=== PATIENT | female | born 1980 | race Caucasian/White ===

== ENCOUNTER 2018-07-06 09:18 | Outpatient (CLI) | payer BC, SELFPAY ==
[2018-07-07 21:43] LABS: Estradiol 67 pg/ml
[2018-07-08 09:46] LABS: FSH 7.9 mIU/ml; LH 3.9 mIU/ml
[2018-07-10 17:16] LABS: Antimullerian Hormone 0.1 ng/mL (0.9-9.5)
== END 2018-07-06 09:38 ==
PROVIDERS: PCP Naturopath; Visit Provider Obstetrics & Gynecology Gynecology
DX: Z31.9 Encounter for procreative management, unspecified (principal)
CPT/HCPCS: 82670; 83001; 83002; 83520

== ENCOUNTER 2018-08-08 13:43 | Outpatient (CLI) | payer BC, SELFPAY ==
[2018-08-08 22:37] LABS: Estradiol 43 pg/ml
[2018-08-09 10:38] LABS: FSH 8.5 mIU/ml; LH 3.4 mIU/ml
[2018-08-12 16:12] LABS: Antimullerian Hormone 0.2 ng/mL (0.9-9.5)
[2018-08-12 17:12] LABS: Methylenetetrahydrofol Reduc M Heterozygous (Negative)
== END 2018-08-08 14:03 ==
PROVIDERS: PCP Naturopath; Visit Provider Obstetrics & Gynecology Gynecology
DX: N96 Recurrent pregnancy loss (principal); Z31.9 Encounter for procreative management, unspecified
CPT/HCPCS: 36415; 81291; 82670; 83001; 83002; 83520

== ENCOUNTER 2018-08-15 00:59 | Outpatient (CLI) | payer BC, SELFPAY ==
[2018-08-15 21:05] LABS: Estradiol 527 pg/ml
[2018-08-16 10:03] LABS: FSH 15.6 mIU/ml; LH 15.7 mIU/ml
== END 2018-08-15 01:19 ==
PROVIDERS: PCP Naturopath; Visit Provider Obstetrics & Gynecology Gynecology
DX: Z31.9 Encounter for procreative management, unspecified (principal)
CPT/HCPCS: 36415; 82670; 83001; 83002

== ENCOUNTER 2018-09-11 11:15 | Outpatient (CLI) | payer BC, SELFPAY ==
[2018-09-11 12:09] LABS: HCG Quant, Pregnancy 1 mIU/mL (1-3)
== END 2018-09-11 11:35 ==
PROVIDERS: PCP Naturopath; Visit Provider Obstetrics & Gynecology Gynecology
DX: N91.2 Amenorrhea, unspecified (principal)
CPT/HCPCS: 36415; 84702

== ENCOUNTER 2018-11-04 16:12 | Outpatient (CLI) | payer BC, SELFPAY ==
[2018-11-04 18:29] LABS: HCG Quant, Pregnancy < 1 mIU/mL (1-3)
[2018-11-04 21:07] LABS: Vitamin D 25 Total 22.8 ng/ml (30-100)
[2018-11-06 15:13] LABS: FSH 3.1 mIU/ml; LH 3.6 mIU/ml
[2018-11-07 17:26] LABS: Estradiol, Mass Spectrometry 421 pg/mL; Estrone 193 pg/mL
== END 2018-11-04 16:32 ==
PROVIDERS: PCP Naturopath; Visit Provider Naturopath
DX: Z31.9 Encounter for procreative management, unspecified (principal); E55.9 Vitamin D deficiency, unspecified
CPT/HCPCS: 36415; 82306; 82670; 82679; 83001; 83002; 84144; 84702

== ENCOUNTER 2019-03-10 01:20 | Outpatient (CLI) | payer BC, SELFPAY ==
--- NOTE | 2019-03-10 12:52 | DI.US_ITS ---
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 Uterus is unremarkable in appearance. Largest follicle on the left is about 14 mm. in diameter and largest follicle on the right is about 13 mm. in diameter. There is a small quantity of free fluid in the cul-de-sac. Limited scanning of the kidneys is unremarkable.
== END 2019-03-10 01:40 ==
PROVIDERS: PCP Naturopath; Visit Provider Obstetrics & Gynecology Gynecology
DX: N97.0 Female infertility associated with anovulation (principal); N83.01 Follicular cyst of right ovary; N83.02 Follicular cyst of left ovary
CPT/HCPCS: 76830; 76856

== ENCOUNTER 2019-08-25 10:27 | Outpatient (CLI) | payer BC, SELFPAY ==
[2019-08-25 17:27] LABS: Progesterone 11.2 ng/mL (See Table)
== END 2019-08-25 10:47 ==
PROVIDERS: PCP Naturopath; Visit Provider Nurse Practitioner Women's Health
DX: N96 Recurrent pregnancy loss (principal); O26.851 Spotting complicating pregnancy, first trimester
CPT/HCPCS: 36415; 84144; 84702

== ENCOUNTER 2019-08-27 09:25 | Outpatient (CLI) | payer BC, SELFPAY | END 2019-08-27 09:45 | PROVIDERS: PCP Naturopath; Visit Provider Nurse Practitioner Women's Health | DX: O26.21 Pregnancy care for patient with recurrent pregnancy loss, first trimester (principal); O26.859 Spotting complicating pregnancy, unspecified trimester | CPT/HCPCS: 36415; 84702 ==

== ENCOUNTER 2019-08-29 09:59 | Outpatient (CLI) | payer BC, SELFPAY | END 2019-08-29 10:19 | PROVIDERS: PCP Naturopath; Visit Provider Naturopath | DX: O09.899 Supervision of other high risk pregnancies, unspecified trimester (principal); Z67.91 Unspecified blood type, Rh negative | CPT/HCPCS: 36415; 86850; 86900; 86901; 90384 ==

== ENCOUNTER 2019-09-25 11:27 | Outpatient (REF) | payer BC, SELFPAY ==
[2019-09-25 12:33] LABS: *AMPHETAMINES SCREEN URINE Negative (Negative); *BARBITURATES SCREEN URINE Negative (Negative); *BENZODIAZEPINES SCREEN URINE Negative (Negative); Cannabinoids THC Negative (Negative); Cocaine Screen,Urine Negative (Negative); METHADONE URINE SCREEN Negative (Negative); OPIATES URINE SCREEN Negative (Negative)
[2019-09-25 12:36] LABS: Tricyclic Antidepressants Negative (Negative)
[2019-09-30 10:19] LABS: Buprenorphine Negative; Norbuprenorphine Negative
== END 2019-09-25 11:47 ==
LOC: LBN 11:27
PROVIDERS: PCP Naturopath; Visit Provider Advanced Practice Midwife
DX: Z34.91 Encounter for supervision of normal pregnancy, unspecified, first trimester (principal)
CPT/HCPCS: 80307; 87086

== ENCOUNTER 2019-10-02 10:31 | Outpatient (CLI) | payer BC, SELFPAY ==
[2019-10-02 11:38] LABS: Kit/Specimen SENT
[2019-10-02 12:12] LABS: Abs Immature Grans 0.05 k/cumm (0.0-0.09); Absolute Basophil Count 0.04 k/cumm (0.0-0.2); Absolute Eosinophil Count 0.44 k/cumm (0.0-0.7); Absolute Lymphocyte Count 1.31 k/cumm (1.2-3.4); Absolute Monocyte Count 1.07 k/cumm (0.11-0.7); Absolute Neutrophil Count 6.57 k/cumm (1.2-6.7); Basophils % 0.4; Eosinophils % 4.6; HCT 38.4 % (36.0-46.0); Immature Grans % 0.5 %; Lymphocytes % 13.8; Mean Corp. HGB Concentration 33.9 g/dL (32.0-36.0); Mean Corpuscular Hemoglobin 32.6 pg (27.0-33.0); Mean Corpuscular Volume 96.2 fL (80-95); Mean Platelet Volume 9.5 fL (8.0-11.0); Monocytes % 11.3; Neutrophils % 69.4; Platelet Count 271 x1000/uL (130-400); RBC 3.99 m/cumm (4.00-5.20); White Blood Cell Count 9.48 k/cumm (4.4-10.8)
[2019-10-02 13:07] LABS: TSH (W/Ref FT4) 1.39 uIU/mL (0.36-3.74)
[2019-10-03 09:32] LABS: Hepatitis B Surface Ag Negative (Negative)
[2019-10-03 10:12] LABS: Hepatitis C Ab w Rflx HCV PCR Negative (Negative)
[2019-10-03 11:32] LABS: HIV-1/2 Ag & Ab Screen Negative (Negative)
[2019-10-03 12:34] LABS: Rubella IgG Ab (UVM) Positive (See Note); Varicella IgG Antibody Positive (See Note)
[2019-10-03 16:29] LABS: Syphilis Total Ab w/Reflex Nonreactive (Nonreactive)
[2019-10-09 10:56] LABS: Specimen WB Whole Blood
[2019-10-09 12:59] LABS: Result Summary NEGATIVE; Specimen WB Whole Blood
== END 2019-10-02 10:51 ==
PROVIDERS: PCP Naturopath; Visit Provider Advanced Practice Midwife
DX: Z34.91 Encounter for supervision of normal pregnancy, unspecified, first trimester (principal); Z36.89 Encounter for other specified antenatal screening
CPT/HCPCS: 81329; 86787; 86803; 86850; 86900; 86901; 87340; 87389; 81220; 84443; 85025; 86762; 86780; 86870

== ENCOUNTER 2019-10-07 08:49 | Outpatient (CLI) | payer BC, SELFPAY ==
[2019-10-13 09:15] LABS: COVID-19 RT-PCR Result Not Detected
== END 2019-10-07 09:09 ==
PROVIDERS: PCP Naturopath; Visit Provider Advanced Practice Midwife
DX: Z20.828 Contact with and (suspected) exposure to other viral communicable diseases (principal); Z11.59 Encounter for screening for other viral diseases; R05 Cough; R09.89 Other specified symptoms and signs involving the circulatory and respiratory systems
CPT/HCPCS: 87449; U0003

== ENCOUNTER 2019-10-21 15:28 | Outpatient (REF) | payer BC, SELFPAY ==
[2019-10-23 13:46] LABS: Chlamydia Result Negative (Negative); GC Result Negative (Negative)
== END 2019-10-21 15:48 ==
LOC: LBN 15:28
PROVIDERS: PCP Naturopath; Visit Provider Advanced Practice Midwife
DX: Z34.91 Encounter for supervision of normal pregnancy, unspecified, first trimester (principal); Z11.3 Encounter for screening for infections with a predominantly sexual mode of transmission
CPT/HCPCS: 87491; 87591

== ENCOUNTER 2019-10-23 02:23 | Outpatient (CLI) | payer BC, SELFPAY ==
[2019-10-23 09:01] LABS: Abs Immature Grans 0.08 k/cumm (0.0-0.09); Absolute Basophil Count 0.04 k/cumm (0.0-0.2); Absolute Eosinophil Count 0.35 k/cumm (0.0-0.7); Absolute Monocyte Count 0.75 k/cumm (0.11-0.7); Basophils % 0.4; Eosinophils % 3.4; HCT 36.5 % (36.0-46.0); HGB 12.5 g/dL (12.0-15.5); Immature Grans % 0.8 %; Lymphocytes % 15.5; Mean Corp. HGB Concentration 34.2 g/dL (32.0-36.0); Mean Corpuscular Volume 96.3 fL (80-95); Mean Platelet Volume 8.9 fL (8.0-11.0); Monocytes % 7.3; Neutrophils % 72.6; Platelet Count 285 x1000/uL (130-400); RBC 3.79 m/cumm (4.00-5.20); RBC Distribution Width 12.9 % (11.7-14.6); White Blood Cell Count 10.32 k/cumm (4.4-10.8)
[2019-10-23 10:21] LABS: Iron 149 ug/dL (50-170); Total Iron Binding Capacity 413 ug/dL (250-450)
[2019-10-23 10:32] LABS: Ferritin 67 ng/mL (8-252)
[2019-10-23 10:46] LABS: Vitamin B12 921 pg/mL (193-986)
[2019-10-23 10:49] LABS: Folate > 20.0 ng/mL (8.6-20.0)
[2019-10-23 16:54] LABS: Progesterone 59.4 ng/mL (See Table)
== END 2019-10-23 02:43 ==
PROVIDERS: PCP Naturopath; Visit Provider Advanced Practice Midwife
DX: Z34.92 Encounter for supervision of normal pregnancy, unspecified, second trimester (principal)
CPT/HCPCS: 36415; 82607; 82728; 82746; 83540; 83550; 84144; 85025

== ENCOUNTER 2020-01-08 04:35 | Outpatient (CLI) | payer BC, SELFPAY ==
[2020-01-08 17:13] LABS: Abs Immature Grans 0.16 k/cumm (0.0-0.09); Absolute Basophil Count 0.02 k/cumm (0.0-0.2); Absolute Eosinophil Count 0.33 k/cumm (0.0-0.7); Absolute Lymphocyte Count 2.01 k/cumm (1.2-3.4); Absolute Monocyte Count 0.87 k/cumm (0.11-0.7); Basophils % 0.2; Eosinophils % 3.1; HCT 32.8 % (36.0-46.0); HGB 11.3 g/dL (12.0-15.5); Immature Grans % 1.5 %; Lymphocytes % 18.6; Mean Corp. HGB Concentration 34.5 g/dL (32.0-36.0); Mean Corpuscular Volume 98.8 fL (80-95); Mean Platelet Volume 9.1 fL (8.0-11.0); Monocytes % 8.1; Neutrophils % 68.5; Platelet Count 210 x1000/uL (130-400); RBC 3.32 m/cumm (4.00-5.20); RBC Distribution Width 12.1 % (11.7-14.6); White Blood Cell Count 10.79 k/cumm (4.4-10.8)
[2020-01-08 17:33] LABS: Bilirubin Negative (Negative); Blood Negative (Negative); Clarity Clear (Clear); Glucose Negative (Negative); Ketones Negative (Negative); Leukocyte Esterase Negative (Negative); Nitrite Negative (Negative); Specific Gravity 1.025 (1.005-1.025); Urobilinogen 0.2 EU/dL (Up TO 0.2)
[2020-01-08 18:03] LABS: Iron 148 ug/dL (50-170); Total Iron Binding Capacity 482 ug/dL (250-450); Transferrin Sat 31 % (15-50)
[2020-01-08 18:32] LABS: ALT 32 U/L (14-59); AST 24 U/L (15-37); Alkaline Phosphatase 73 U/L (46-116); Anion Gap 10.8 mmol/L (3-11); BUN 12 mg/dL (7-18); Bilirubin, Total 0.2 mg/dL (0.2-1.0); CO2 22.2 mmol/L (21.0-32.0); CREATININE 0.49 mg/dL (0.55-1.02); Calcium 8.4 mg/dL (8.5-10.1); Chloride 103 mmol/L (98-107); Ferritin 33 ng/mL (8-252); Glucose 78 mg/dL (74-106); Magnesium 1.8 mg/dL (1.8-2.4); Potassium 4.2 mmol/L (3.5-5.1); Sodium 136 mmol/L (136-145); TSH 2.17 uIU/mL (0.36-3.74); Total Protein 6.2 g/dL (6.4-8.2); Vitamin B12 712 pg/mL (193-986)
[2020-01-08 18:33] LABS: Folate > 20.0 ng/mL (8.6-20.0)
[2020-01-08 18:49] LABS: FREE T4 0.91 ng/dL (0.76-1.46)
[2020-01-09 16:59] LABS: T3,Free 2.9 pg/mL (2.8-5.3)
[2020-01-09 17:13] LABS: T3, Total 183 ng/dL (97-169)
== END 2020-01-08 04:55 ==
PROVIDERS: PCP Naturopath; Visit Provider Naturopath
DX: R00.2 Palpitations (principal); G47.62 Sleep related leg cramps; Z3A.25 25 weeks gestation of pregnancy; R53.83 Other fatigue
CPT/HCPCS: 36415; 80053; 81003; 82607; 82728; 82746; 83540; 83550; 83735; 84439; 84443; 84480; 84481; 85025

== ENCOUNTER 2020-01-27 03:12 | Outpatient (CLI) | payer BC, SELFPAY ==
[2020-01-27 15:32] LABS: HCT 33.7 % (36.0-46.0); HGB 11.4 g/dL (12.0-15.5); Mean Corp. HGB Concentration 33.8 g/dL (32.0-36.0); Mean Corpuscular Hemoglobin 33.3 pg (27.0-33.0); Mean Corpuscular Volume 98.5 fL (80-95); Mean Platelet Volume 8.5 fL (8.0-11.0); Platelet Count 220 x1000/uL (130-400); RBC 3.42 m/cumm (4.00-5.20); RBC Distribution Width 12.2 % (11.7-14.6)
[2020-01-27 15:38] LABS: Glucose,1 Hr (Glucola) 92 mg/dL (80-140)
== END 2020-01-27 03:32 ==
PROVIDERS: PCP Naturopath; Visit Provider Advanced Practice Midwife
DX: Z34.93 Encounter for supervision of normal pregnancy, unspecified, third trimester (principal)
CPT/HCPCS: 36415; 82950; 85027; 86850; 90384

== ENCOUNTER 2020-01-30 02:02 | Outpatient (CLI) | payer BC, SELFPAY ==
--- NOTE | 2020-01-30 07:00 | DI.US_ITS ---
EXAM: US OB KEIRA WEIGHT CLINICAL HISTORY: s<d, , Z34.83. TECHNIQUE: Transabdominal obstetrical ultrasound performed. COMPARISON: No exams were available for comparison FINDINGS:: Number of fetuses: One. position: Vertex. Placental location: Fundal. Grade 1 BIOMETRIC DATA: BPD: 75mm = 30+ 1 weeks HC: 275 mm = 30 weeks AC: 253mm = 29+ 4 weeks FL: 55 mm = 29 weeks EFW: 1389 gms =69 % Composite Age: 29+ 5 weeks EDC: 11 April 2020 Heart Rate: 141 BPM Amniotic fluid index: 9.9 cm. Amount of fluid is within normal limits. IMPRESSION: size and weight are within the expected range. DATA REPOSITORY:
== END 2020-01-30 02:22 ==
PROVIDERS: PCP Naturopath; Visit Provider Advanced Practice Midwife
DX: O26.843 Uterine size-date discrepancy, third trimester (principal); Z3A.29 29 weeks gestation of pregnancy
CPT/HCPCS: 76816

== ENCOUNTER 2020-03-16 01:03 | Outpatient (CLI) | payer BC, SELFPAY ==
--- NOTE | 2020-03-16 06:00 | DI.US_ITS ---
EXAM: US OB KEIRA WEIGHT CLINICAL HISTORY: ,advanced maternal age,o09.529 TECHNIQUE: Ultrasound performed using standard protocol. COMPARISON: US US OB KEIRA WEIGHT from 01/30/2020 FINDINGS: Ob ultrasound was performed utilizing 3rd trimester protocol. biometry is consistent with gest ational age 34 weeks 3 days and EDC of 04/24/2020. The estimated weight is 2444 grams which is at the 29th percentile for predicted gestational ag e. Placenta is anterior with no placenta previa. There is visually a normal quantity of the amniotic fluid and the KEIRA is 12. Fetus is in cephalic presentation. heart rate is 153 BPM. IMPRESSION: DATA REPOSITORY:
== END 2020-03-16 01:23 ==
PROVIDERS: PCP Naturopath; Visit Provider Advanced Practice Midwife
DX: O09.523 Supervision of elderly multigravida, third trimester (principal)
CPT/HCPCS: 76816

== ENCOUNTER 2020-03-16 03:18 | Outpatient (CLI) | payer BC, SELFPAY ==
[2020-03-16 07:55] LABS: HGB 11.8 g/dL (11.2-15.7); MCH 34.4 pg (27.0-33.0); MCHC 34.7 % (32.0-36.0); MCV 99.1 fL (80-95); MPV 9.3 fL (8.0-11.0); Platelet Count 155 10^3/uL (130-400); RBC 3.43 10^6/uL (3.93-5.22); RDW 12.5 % (11.7-14.6); RDW-SD 45.1 fL; WBC 9.86 10^3/uL (4.4-10.8)
[2020-03-16 12:18] LABS: Ferritin 34 ng/mL (8-252); TSH 2.26 uIU/mL (0.36-3.74)
== END 2020-03-16 03:38 ==
PROVIDERS: PCP Naturopath; Visit Provider Naturopath
DX: E55.9 Vitamin D deficiency, unspecified (principal); E53.8 Deficiency of other specified B group vitamins; R53.83 Other fatigue
CPT/HCPCS: 36415; 82306; 85027; 82728; 84443

== ENCOUNTER 2020-03-22 07:11 | Outpatient (CLI) | payer BC, SELFPAY | END 2020-03-22 07:31 | PROVIDERS: PCP Naturopath; Visit Provider Advanced Practice Midwife | DX: O09.523 Supervision of elderly multigravida, third trimester (principal) | CPT/HCPCS: 59025 ==

== ENCOUNTER 2020-03-22 16:20 | Outpatient (REF) | payer BC, SELFPAY ==
[2020-03-22 17:34] LABS: *AMPHETAMINES SCREEN URINE Negative (Negative); *BARBITURATES SCREEN URINE Negative (Negative); *BENZODIAZEPINES SCREEN URINE Negative (Negative); Cannabinoids THC Negative (Negative); Cocaine Screen,Urine Negative (Negative); METHADONE URINE SCREEN Negative (Negative); OPIATES URINE SCREEN Negative (Negative)
[2020-03-22 18:11] LABS: Tricyclic Antidepressants Negative (Negative)
[2020-03-31 11:08] LABS: Buprenorphine Negative
== END 2020-03-22 16:40 ==
LOC: LBN 16:20
PROVIDERS: PCP Naturopath; Visit Provider Advanced Practice Midwife
DX: Z34.83 Encounter for supervision of other normal pregnancy, third trimester (principal)
CPT/HCPCS: 80307; 87081

== ENCOUNTER 2020-03-31 07:33 | Outpatient (CLI) | payer BC, SELFPAY | END 2020-03-31 07:53 | PROVIDERS: PCP Naturopath; Visit Provider Advanced Practice Midwife | DX: O09.523 Supervision of elderly multigravida, third trimester (principal) | CPT/HCPCS: 59025 ==

== ENCOUNTER 2020-04-06 14:37 | Outpatient (CLI) | payer BC, SELFPAY ==
[2020-04-06 15:17] VITALS: BP 118/59; PULSE 83; TEMP 36.5
--- NOTE | 2020-04-06 16:06 | W.OBNST ---
Date of service: 04/06/20 Time of Service: 16:06 NST Evaluation Reason for NST Reasons for Nonstress Test: ADVANCED MATERNAL AGE Gestational Age Gestational Age in Weeks and Days: 38 Weeks and 1Days Test and Monitor Explained Test/Monitor Explained: Test Explained, Monitor Explained and Patient Verbalized Understanding Vital Signs Blood Pressure: 118/59 Pulse: 83 Temperature: 97.7 F NST Information Date on Monitor: 04/06/20 Time on Monitor: 15:12 Date off Monitor: 04/06/20 Time off Monitor: 15:40 Total Time on Monitor: 28 NST Interventions: PO Hydration Contraction Frequency: 5-7 NST Evaluation Patient States Movement: Present FHR Baseline: 140 Variability: Moderate 6-25 bpm Accelerations: 15x15 Decelerations: Early NST Results: Reactive Note NST Note Note: complains of discharge with odor. Vaginal pathogen screen taken, await results. RTO 04/12 for NST. declines induction of labor NST Reviewed and Verified by: chantel
[2020-04-06 16:08] VITALS: BP 118/59; PULSE 83; TEMP 36.5
== END 2020-04-06 16:13 | disposition home or self-care (01) ==
LOC: BCD 14:38 → OBS 14:44
PROVIDERS: PCP Naturopath; Visit Provider Advanced Practice Midwife
DX: O09.523 Supervision of elderly multigravida, third trimester (principal); Z3A.38 38 weeks gestation of pregnancy; O34.63 Maternal care for abnormality of vagina, third trimester
CPT/HCPCS: 59025; 87480; 87510; 87660

== ENCOUNTER 2020-04-12 02:32 | Inpatient (IN) | payer BC, SELFPAY ==
[2020-04-12] VITALS (24 sets, daily range): BP systolic 100–117; BP diastolic 53–69; PULSE 67–101; RESP 18–20; TEMP 36.4–37; O2SAT 98–100
[2020-04-12] MEDS: Lactated Ringers 500 ML IV (03:25)
[2020-04-12 03:39] LABS: HCT 35.4 % (36.0-46.0); MCH 33.4 pg (27.0-33.0); MCHC 33.9 % (32.0-36.0); MCV 98.6 fL (80-95); MPV 10.1 fL (8.0-11.0); Platelet Count 154 10^3/uL (130-400); RBC 3.59 10^6/uL (3.93-5.22); RDW-SD 43.5 fL; WBC 10.43 10^3/uL (4.4-10.8)
[2020-04-12] MEDS: Bupivacaine 0.25% Pres-Free 30 ML VIAL (03:50)
--- NOTE | 2020-04-12 04:20 | W.PM.OBHPL1 ---
Date of service: 04/12/20 Time of Service: 04:21 Assessment and Plan Assessment and plan (1) Uterine contractions: Status: Acute Assessment and plan: Admit to Center. Comfort measures. Covid- 19 test. Anticipate . Farnaz used nitrous oxide for pelvic exam and to assist her with contraction pain with good effect. The tub was unavailable. Farnaz requested an epidural. OB-HPI Labor/Delivery History of Present Illness Reason for Visit: LABOR Chief Complaint: Uterine Contractions. YOANNA Calculator Estimated Delivery Date Method Current WG Current Estimate 04/19/20 LMP (Uncertain) 39w 0d Other Estimates 04/15/20 Ultrasound #1 39w 4d 04/20/20 Ultrasound #2 38w 6d Comments: strong regular contractions at home History of Present Expected Delivery Route/Plan - CNM FOB/ - Ty Beulah Doesn't want to know gender Age 40 at delivery: per [facility] MFM - NST's w/KEIRA @ 38 wks, IOL 39-40 wks Farnaz does not wish to be induced unless there is another medical reason GBS NEG N2O to be offered @ initial admission exam and all exams thereafter. [place] slip attached to BC chart re same al Specific Issues/Plan 1. Rh neg: light bleeding at 6w. Pt received dose of Rhogam at 7w. 1a. RhoGam @ 28 wks on 01/27/20 2. AMA: pt desires level 2 sono @ [facility] w/[facility] consult on 11/21/19 2a. [facility]:, level 2 sono & Chauncey nml, no further rec from [facility] regarding AP care 2b. refer to [facility] rec's for maternal age 40 (not discussed w/pt @ consult) 2c. Early induction of labor discussed - Farnaz declines 3. Desires Chauncey, CF and SMA, PA req sent. Also desires single marker AFP @ 15 wks. 3a. SMA and CF carrier screen negative 3b. Chauncey results low prob x3 4. Hx vulvar vestibulitis, no Rx or Tx currently, painful intercourse upon entry 4a. Hopes not to have an epidural this time, would like to try for waterbirth, ?pudendal?, & nitrous 5. Using vaginal prometrium BID to maintain until 12 wks 6. Hx anxiety, in therapy, no meds, declines [facility] referral 6a. severe depression, seeing her therapist 01/06. Declines medication 6b. under the care of a asphalt mixing machine operator, labs were done 01/13, taking Magnesium supplement 7. Has been under the care of a asphalt mixing machine operator for her digestive concerns 8. Rx'ed Flonase BID for allergies (cat B) 9. Persistent vaginal yeast sx, Rx'ed diflucan 150 PO x1 and Terazol 7, sent 12/07 9a. 12/18 - symptoms improved. 10. Back pain - referred to [facility] 11. Requests jelly beans in place of Glucola. She drank 50 grams of soda/shake. Normal results. 12. 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 13. US for growth at 28 weeks - EFW 69%ile and KEIRA 9.9; pt has increased anxiety about size, will repeat at 36 wks = 29%, keira 12 14. History of pelvic floor dysfunction and dyspareunia - plans to have pelvic floor therapy at her chiropractor after delivery. Assessment: History Reviewed & Current Informed Consent Informed Consent: Regional Anesthesia [facility] Medical History (Updated 04/12/20 @ 04:24 by Ivania Healy CNM) Dyspareunia Lichen simplex chronicus Diagnosed 1999 Miscarriage 03/16/17. After diagnosed with subchorionic bleed and low FH are on dating ultrasound. 9-week SAB without D&C. RhoGam given 07/18/2017. 5W EGA. No D&C. No RhoGam given. Patient desires 2 first trimester SABs in 2016. Has used progesterone for luteal support. Rh negative, maternal received Rhogam with 1st and 02/2017 SAB. Spontaneous in first trimester (03/21/17) 02/2017. 6w dating u/s: low FHR. Subchorionic bleed. 9w SAB w/o D&C. 07/18/17 5w EGA. No D&C. Social History Smoking/Tobacco Use Status: Former Tobacco Use Quit Date: 04/15/05 Second Hand Exposure: No Alcohol Intake: former Substance use type: does not use Household members: spouse and children Number of Children: 1 current occupation: [employer] Sexually active: Yes Seatbelt use: always Female Reproductive History Menstrual control method: none History History 4 Para 1 Hx # Term Pregnancies 1 Multiple births 0 Hx # Pregnancies 0 Ectopic pregnancies 0 AB induced 0 Hx Number of Living Children 1 AB spontaneous 2 Past Pregnancies Del. Date GA/Weeks # Outcome Route Wgt Sex Labor Lgth Anesthesia Location Prov Complic 06/28/13 39 No Successful vaginal 6 lb 4 oz Male SROM then labor, epidural @ 9 cm CNM in [place] 03/20/17 9 No Unsuccessful vaginal 07/18/17 5 No Unsuccessful Delivery Date: 06/28/13 normal Natty Alvarado Delivery Date: 03/20/17 Initial dating ultrasound at 6 weeks showed IUP with slow heart rate and subchorionic bleed. SAB at 9 weeks not requiring D&C. Patient received RhoGam Georgiana Ferrer Delivery Date: 07/18/17 SAB at 5 weeks after+ UPT confirmed on 07/11/2017. No RhoGam given Georgiana Ferrer Meds Home Medications and Allergies Home Medications Medication Instructions Recorded Confirmed Type PNV cmb#95-ferrous fumarate-FA 1 ea PO 03/21/17 02/12/20 History [Prenavite] omega-3 fatty acids-fish oil 1 ea PO 03/21/17 02/12/20 History lactobacillus combination no.8 3 See Rx Instructions PO DAILY 12/19/19 02/12/20 History billion cell capsule cholecalciferol (vitamin D3) 1,000 unit PO DAILY ml 01/16/20 02/12/20 History magnesium 200 mg tablet 200 mg PO BID tab 01/16/20 02/12/20 History nettle leaf (urtica dioica) 435 mg mg PO 01/16/20 02/12/20 History capsule vitamin B12 0.5 mg-folic acid 1 mg 1 tab PO .two times daily tab 01/16/20 02/12/20 History tablet Chlorophyll Liquid PO BID 01/27/20 02/12/20 History fluticasone propionate 50 1 spray CHARLEEN Q12H PRN ml 01/27/20 02/12/20 History mcg/actuation nasal spray,suspension Rhodiola/Lemon [place] Tincture PO DAILY 02/12/20 02/12/20 History Allergies Allergy/AdvReac Type Severity Reaction Status Date / Time grass pollen Allergy Intermediate Verified 04/12/20 02:55 house dust Allergy Mild Unverified 04/12/20 02:55 trees] Allergy Intermediate Uncoded 04/12/20 02:55 Exam Physical Exam Vital signs: Pulse BP Pulse Ox 77 108/53 L 100 04/12/20 04:19 04/12/20 04:19 04/12/20 04:17 Vital Signs Reviewed: Yes Constitutional Constitutional: mild distress Detailed Labor and Delivery Exam Dilation: 6 Effacement (%): 100 Consistency: soft Lanier Score: Cervical Points Exam 0 1 2 3 Dilation Closed 1-2cm 3-4 cm 5-6cm Effacement 0-30% 40-50% 60-70% 80% Consistency Firm Medium Soft Station -3 -2 -1,0 +1,+2 Position Posterior Mid Anterior Amniotic Membrane Status: Intact Monitor Mode: External Contraction Intensity: Mild/Moderate Fetus A Heart Rate Baseline: 148 Monitor Accelerations: 15 X 15 Monitor Decelerations: None Variability: Moderate (6-25 BPM) Presentation: Cephalic Categories: Category I Est. Weight: 7 lb HEENT Exam HEENT Exam: Normal Respiratory Exam Respiratory Exam: Normal Cardiovascular Exam Cardiovascular Exam: Normal Abdominal Exam Abdominal Exam: Normal Exam Exam: Normal Extremities Exam Extremities Exam: Normal Skin Exam Skin Exam: Normal Psychiatric Exam Psychiatric Exam: Normal Results Abnormal Lab Findings: Abnormal Labs 04/12/20 03:20 RBC 3.59 L Hct 35.4 L MCV 98.6 H MCH 33.4 H Risk Assessment Risk for Shoulder Dystocia Historical/Initial OB: NEGATIVE FOR: Pelvic Abnormality, Pre- BMI>30, Previous Shoulder Dystocia or Previous Macrosomia Increased Risk?: No Date/Initial: 03/22/20 36 weeks low risk Delivery Plan @ 36wks: Risk for Pre-Eclampsia Daily Dose ASA Indicated: No Yes, if one or more: NEGATIVE FOR: Hx Pre-E/Gest HTN, Chronic HTN, Multiple Gestation, Pre-gestational DM, Renal Disease, Systemic Lupus or APA Syndrome Yes, if 2 or more: POSITIVE FOR: Age>= 35 yrs; NEGATIVE FOR: Nulliparity, >10yr btwn pregnancies, BMI>30, ethinicty, Mother/Sister w/ Pre-E or Previous IUGR Risk for Post- Hemorrhage Initial: NEGATIVE FOR: Multiple Gestation, Previous PPH, Known Clotting Deficiency, Grand Multiparity or Anticoagulation At Risk?: No (low risk @ 36 weeks al) Risks Reviewed Risks Reviewed Upon Admission: Yes
[2020-04-12] MEDS: FentaNYL/ROPIvacaine 2 mcg/ml and 0.1% 200 ML CADD Cassette EP (04:38)
[2020-04-12] MEDS: Lidocaine 2% Jelly 11 ML SYR (05:50)
[2020-04-12] MEDS: Oxytocin/Normal Saline 30 UNIT/500 ML BAG 95 UNITS IV (05:55)
[2020-04-12] MEDS: Lidocaine 1% Multi-Dose 20 ML VIAL IJ (06:29)
[2020-04-12] MEDS: Ibuprofen 600 MG TAB PO ×2 (07:45→17:09)
[2020-04-12] MEDS: Acetaminophen 325 MG TAB 650 MG PO ×2 (07:46→17:09)
[2020-04-12] MEDS: Hamamelis Leaf/Glycerin 100 EACH BOX PR (07:47)
[2020-04-12 14:59] LABS: COVID-19 RT-PCR UVMMC Result Negative (Negative)
[2020-04-13] MEDS: Acetaminophen 325 MG TAB 650 MG PO ×3 (01:17→18:18)
[2020-04-13] MEDS: Ibuprofen 600 MG TAB PO ×3 (01:17→18:18)
[2020-04-13 01:29] VITALS: BP 104/62; PULSE 61; RESP 18; TEMP 37.1
[2020-04-13 07:28] LABS: HCT 32.4 % (36.0-46.0); HGB 10.9 g/dL (11.2-15.7); MCH 33.5 pg (27.0-33.0); MCHC 33.6 % (32.0-36.0); MCV 99.7 fL (80-95); MPV 9.9 fL (8.0-11.0); Platelet Count 145 10^3/uL (130-400); RBC 3.25 10^6/uL (3.93-5.22); RDW 12.2 % (11.7-14.6); RDW-SD 44.7 fL
[2020-04-13 08:00] VITALS: BP 102/65; PULSE 60; RESP 16; TEMP 36.6; O2SAT 97
--- NOTE | 2020-04-13 08:07 | W.OBDELIVERY ---
Date of service: 04/12/20 Time of Service: 10:00 OB Labor/ Delivery Information Providers Nurse Cultural Centre Manager: Ivania Healy Smoke Eater: Al Robledo Nurse: Mirza Thomas Nurse: Kaylie Mesa Labor/Delivery Information Number of Babies in Womb: 1 Steroids Given: None Reason Steroids Not Administered: N/A Group Beta Strep: Negative Antibiotics Administered: No Rubella Status: Immune Blood Type: O- Varicella Immunity: Immune Shoulder Dystocia: No Stages of Labor Onset of Labor Date: 04/11/20 Onset of Labor Time: 23:00 Complete Dilatation Date: 04/12/20 Complete Dilatation Time: 05:00 ROM Baby A: 04/12/20 ROM Baby A: 04:24 ROM Total Time- Baby A: [id number] Delivery Date-Baby A: 04/12/20 Infant Delivery Time-Baby A: 05:46 Placenta Delivery Date-Baby A: 04/12/20 Placenta Delivery Time-Baby A: 05:54 Total Length of Labor-Baby A: 6 hours and 54 minutes Placenta Cultured: No Placenta Status: Delivered Baby A Gender: Male Gestational Status: Term Gestational Age in Weeks/Days: 39 Weeks and 0 Days weight: 6 lb 15.818 oz Length-Baby A: 20.5 in Head Circumference-Baby A: 12.75 in Score-1 Minute Interval(Baby A) Heart Rate-1 minute: 100 BPM or Greater Respiratory Effort- 1 minute: Spontaneous/Strong Cry Muscle Tone-1 minute: Active Movement Reflex Response-1 minute: Prompt Response Color-1 minute: Bluish Hands or Feet Total Score-1 minute: 9 Score-5 Minute Interval(Baby A) Heart Rate- 5 minute: 100 BPM or Greater Respiratory Effort-5 minute: Spontaneous/Strong Cry Muscle Tone-5 minute: Active Movement Reflex Response-5 minute: Prompt Response Color-5 minute: Bluish Hands or Feet Total Score- 5 minute: 9 Baby A Delivery Delivery Method: Spontaneaous Presentation: Cephalic Cephalic Position: Vertex Vertex Position: Left Occipital Anterior Cord Description-Baby A: 3 Vessels Membrane Rupture: Spontaneous Amniotic Fluid: Clear Amniotic Fluid Amount: Small Amniotic Fluid Odor: None Estimated Blood Loss: 250 Delivery Outcome: Liveborn Infant Disposition: Remains with Mother Interventions Pain Management/ Repair of Laceration Type: Perineal , Laceration Extension: Second Degree . Sponge Count Correct: Vaginal Sweep Peformed , Sharp Count Correct: Yes . Shoulder Dystocia Delivery Times Infant Delivery Date-Baby A: 04/12/20 Infant Delivery Time-Baby A: 05:46
[2020-04-13] MEDS: Docusate Sodium 100 MG CAP PO ×2 (10:57→18:18)
[2020-04-13 13:05] VITALS: BP 105/50; PULSE 63; RESP 16; TEMP 36.7; O2SAT 97
--- NOTE | 2020-04-13 15:29 | W.PM.OBPNV1 ---
Date of service: 04/13/20 Time of Service: 10:30 Assessment and Plan Assessment and plan (1) Routine follow-up: Status: Acute Assessment and plan: PPD#1 PE nml, pt feeling well though tired off to a good start RhoGam given yesterday Hgb 10.9, no sx anemia Satisfied with experience P: Discharge tonight or tomorrow LC consult & nbn circumcision Planning vasectomy for BCM F/up @ 2 & 6 wks Subjective Subjective Patient comments: No complaints, Pain well controlled, Tolerating diet and Flatus present baby status: Doing well, Nursing well, Rooming in and Strong Bonding Observed feeding status: Exclusively breast feeding Narrative: Feeling tired but happy Exam Physical Exam Vital signs: Temp Pulse Resp BP Pulse Ox 98.1 F 63 16 105/50 L 97 04/13/20 13:05 04/13/20 13:05 04/13/20 13:05 04/13/20 13:05 04/13/20 13:05 Vital Signs Reviewed: Yes Constitutional Constitutional: no acute distress and average body habitus Respiratory Exam Respiratory Exam: Normal Cardiovascular Exam Cardiovascular Exam: Normal Abdominal Exam Comments: soft Fundal Exam Fundus: Below Umbilicus and Firm Extremities Exam Extremity Exam: Normal Psychiatric Exam Psychiatric Exam: Normal Results Hemoglobin/Hematocrit: Hgb 10.9 g/dL (11.2-15.7) L 04/13/20 07:10 Hct 32.4 % (36.0-46.0) L 04/13/20 07:10 Abnormal Lab Findings: Abnormal Labs 04/12/20 04/13/20 03:20 07:10 RBC 3.59 L 3.25 L Hgb 10.9 L Hct 35.4 L 32.4 L MCV 98.6 H 99.7 H MCH 33.4 H 33.5 H
--- NOTE | 2020-04-13 17:45 | W.PM.OBDISCH ---
Date of service: 04/13/20 Time of Service: 17:45 DS: Diagnosis Discharge Diagnosis (1) Routine follow-up: Status: Acute (2) Term delivered: Status: Acute Discharge Plan Disposition Patient Disposition: HOME Condition: Good Discharge Details Reason For Visit: LABOR Admit Date/Time: 04/12/20 02:32 Admit Provider: Ivania Healy Attending Provider: Ivania Healy Primary Care Provider: Ivania Sow Hospital Course Hospital Course: with epidural anesthesia, nml PP course Home Meds and New Rx's Prescriptions: No Action cholecalciferol (vitamin D3) 25 mcg/drop ( 1,000 unit/drop) drops 5,000 unit PO DAILY RF: 0 magnesium 200 mg tablet 200 mg PO BID RF: 0 vitamin O14-tqgmq acid 0.5-1 mg tablet 3 tab PO .two times daily MDD 3 RF: 0 nettle leaf (urtica dioica) 435 mg capsule See Rx Instructions .ROUTE .COMPLEX RF: 0 Adult Probiotic 3 billion cell capsule See Rx Instructions PO DAILY RF: 0 fluticasone propionate [Flonase Allergy Relief] 50 mcg/actuation spray,suspension 1 spray CHARLEEN Q12H PRNRF: 0 Chlorophyll Liquid bottle 5 - 10 drp PO BID RF: 0 Rhodiola/Lemon [place] Tincture bottle 4 drp PO DAILY RF: 0 omega-3 fatty acids-fish oil 1 EACH capsule 1 ea PO AC & HS RF: 0 PNV cmb#95-ferrous fumarate-FA [] 1 EACH tablet 2 ea PO BID RF: 0 Discharge Instructions Additional Instructions: Please call the office to make your 2 and 6 wk appointments with the dull coat mill operator Stand Alone Forms: BC Instructions, NB Circumcision Care Inst., NB Instructions, BC Post Vaginal Deliver Activity:: Activity as Tolerated Equipment/Supplies:: No Equipment Needed Diet:: Normal Diet Discharge Orders Discharge Orders: Discharge Order (Routine); Ordered 04/13/20 Ordered By: Natty Alvarado OB:DS Summary Summary Vaginal Delivery Method: Spontaneaous Episiotomy Description: None Laceration Description: Perineal Laceration Extension: Second Degree Contraception Discussed Contraception Discussed: Yes Contraceptive Plan: Foam/Condoms and Vasectomy, Gender-Baby A: Male weight: 6 lb 15.818 oz Status at Discharge Functional status at discharge: independent ambulation Overall status at discharge: patient is progressing back to baseline Mental Status: mental status grossly normal Speech and Movement: speech and movement normal Mood: congruent mood Affect: normal affect Exam Physical Exam Vital signs: Temp Pulse Resp BP Pulse Ox 98.1 F 63 16 105/50 L 97 04/13/20 13:05 04/13/20 13:05 04/13/20 13:05 04/13/20 13:05 04/13/20 13:05 Constitutional Constitutional: no acute distress and average body habitus Respiratory Exam Respiratory Exam: Normal Cardiovascular Exam Cardiovascular Exam: Normal Fundal Exam Fundus: Below Umbilicus and Firm Exam Perineum: Normal and Repair Intact External: Present normal urethra appearance Extremities Exam Extremity Exam: Normal Psychiatric Exam Psychiatric Exam: Normal [facility] Medical History (Updated 04/13/20 @ 17:45 by Natty Alvarado) Dyspareunia Lichen simplex chronicus Diagnosed 1999 Miscarriage 03/16/17. After diagnosed with subchorionic bleed and low FH are on dating ultrasound. 9-week SAB without D&C. RhoGam given 07/18/2017. 5W EGA. No D&C. No RhoGam given. Patient desires 2 first trimester SABs in 2016. Has used progesterone for luteal support. Rh negative, maternal received Rhogam with 1st and 02/2017 SAB. Spontaneous in first trimester (03/21/17) 02/2017. 6w dating u/s: low FHR. Subchorionic bleed. 9w SAB w/o D&C. 07/18/17 5w EGA. No D&C. Social History Smoking/Tobacco Use Status: Former Tobacco Use Quit Date: 04/15/05 Second Hand Exposure: No Alcohol Intake: former Substance use type: does not use Household members: spouse and children Number of Children: 1 current occupation: [employer] Sexually active: Yes Seatbelt use: always Female Reproductive History Menstrual control method: none History History 4 Para 1 Hx # Term Pregnancies 1 Multiple births 0 Hx # Pregnancies 0 Ectopic pregnancies 0 AB induced 0 Hx Number of Living Children 1 AB spontaneous 2 Past Pregnancies Del. Date GA/Weeks # Outcome Route Wgt Sex Labor Lgth Anesthesia Location Prov Complic 06/28/13 39 No Successful vaginal 6 lb 4 oz Male SROM then labor, epidural @ 9 cm CNM in [place] 03/20/17 9 No Unsuccessful vaginal 07/18/17 5 No Unsuccessful Delivery Date: 06/28/13 normal Natty Alvarado Delivery Date: 03/20/17 Initial dating ultrasound at 6 weeks showed IUP with slow heart rate and subchorionic bleed. SAB at 9 weeks not requiring D&C. Patient received RhoGam Georgiana Ferrer Delivery Date: 07/18/17 SAB at 5 weeks after+ UPT confirmed on 07/11/2017. No RhoGam given Georgiana Ferrer DS: Data Vitals/I&O Vitals and I&O: Vital Signs Temperature 98.1 F 04/13/20 13:05 Pulse 63 04/13/20 13:05 Pulse Rhythm Regular 04/13/20 08:00 Respiratory Rate 16 04/13/20 13:05 Blood Pressure 105/50 L 04/13/20 13:05 Blood Pressure Mean 68 04/13/20 13:05 Pulse Oximetry 97 04/13/20 13:05 Pain Level 3 04/13/20 10:58 Intake & Output 04/12/20 04/13/20 04/13/20 23:59 11:59 23:59 Intake Total 500 / 1700 Output Total 800 / 1200 Balance -300 / 500 Weight 137 lb Intake: Oral 500 / 700 Output: Urine 800 / 1200 Other: Urine Color Yellow Data Completed and Pending Labs on day of discharge: Labs from last 24 hours 04/13/20 04/12/20 04/12/20 07:10 16:30 03:20 WBC 10.80 RBC 3.25 L Hgb 10.9 L Hct 32.4 L MCV 99.7 H MCH 33.5 H MCHC 33.6 RDW 12.2 Plt Count 145 MPV 9.9 Patient ABO/Rh O Negative Antibody Screen Positive Antibody Identification Anti-D Screen Negative Unit Expiration Date 09/12/2021 Product Lot # [id number]
== END 2020-04-13 19:10 | disposition home or self-care (01) | DRG 807 ==
PROVIDERS: Admitting Provider Advanced Practice Midwife; PCP Naturopath; Visit Provider Advanced Practice Midwife
DX: O70.1 Second degree perineal laceration during delivery (principal); Z37.0 Single live birth; O09.523 Supervision of elderly multigravida, third trimester; O26.893 Other specified pregnancy related conditions, third trimester; Z11.59 Encounter for screening for other viral diseases; Z67.41 Type O blood, Rh negative; Z3A.39 39 weeks gestation of pregnancy
CPT/HCPCS: 36415; 85027; 85461; 86850; 86900; 86901; 90384; U0003; 86870; J2790

== ENCOUNTER 2020-05-25 15:38 | Outpatient (REF) | payer BC, SELFPAY ==
--- NOTE | 2020-05-25 10:30 | PAPFT_PTH ---
PATIENT: Farnaz Reynoso LOC: [facility] U#:[id number] AGE/SX: 40/F ROOM: RE05/25/[address]: Ivania Healy : 1980 BED: DIS: 05/25/2020 SPEC #: [id number] RECD: 05/25/20 17:43 STATUS: SHIRLENE REQ #: [id number] MALIK: 05/25/20 10:[address]: Ivania Healy DEPT: [facility] Cytology RECD BY: Betsy Yeung ENTERED: 05/25/20 17:43 SP TYPE: PAPFT OTHR DR: Ivania Sow Tissues: 1 - CX/ENDOCX FOR PAP SMEARS Procedures: PAP THIN PREP/UVM Screening Comments: [id number] (FORTUNA) (UNSATISFACTORY FOR EVALUATION)
== END 2020-05-25 15:58 ==
LOC: LBN 15:38
PROVIDERS: PCP Naturopath; Visit Provider Advanced Practice Midwife
DX: Z12.4 Encounter for screening for malignant neoplasm of cervix (principal); R87.615 Unsatisfactory cytologic smear of cervix
CPT/HCPCS: 88142

== ENCOUNTER 2020-06-15 11:43 | Outpatient (REF) | payer BC, SELFPAY ==
--- NOTE | 2020-06-15 11:00 | PAPFT_PTH ---
PATIENT: Farnaz Reynoso LOC: [facility] U#:[id number] AGE/SX: 40/F ROOM: RE06/15/[address]: Ivania Healy : 1980 BED: DIS: 06/15/2020 SPEC #: [id number] RECD: 06/15/20 12:53 STATUS: SHIRLENE REQ #: [id number] MALIK: 06/15/20 11:[address]: Ivania Healy DEPT: [facility] Cytology RECD BY: Betsy Yeung ENTERED: 06/15/20 12:53 SP TYPE: PAPFT OTHR DR: Ivania Sow Tissues: 1 - CX/ENDOCX FOR PAP SMEARS Procedures: PAP THIN PREP/UVM Screening HPV DNA PROBE Comments: [id number]
== END 2020-06-15 12:03 ==
LOC: LBN 11:43
PROVIDERS: PCP Naturopath; Visit Provider Advanced Practice Midwife
DX: Z12.4 Encounter for screening for malignant neoplasm of cervix (principal); Z11.51 Encounter for screening for human papillomavirus (HPV)
CPT/HCPCS: 88142; 87624

== ENCOUNTER 2020-09-10 02:52 | Outpatient (CLI) | payer BC, SELFPAY ==
[2020-09-10 09:00] LABS: Abs Immature Grans 0.01 10^3/uL (0.0-0.06); Absolute Basophil Count 0.08 10^3/uL (0.0-0.2); Absolute Eosinophil Count 0.54 10^3/uL (0.0-0.7); Absolute Lymphocyte Count 1.92 10^3/uL (1.2-3.4); Absolute Monocyte Count 0.52 10^3/uL (0.1-0.8); Absolute Neutrophil Count 2.98 10^3/uL (1.2-6.7); Basophils % 1.3; Eosinophils % 8.9; HCT 39.2 % (36.0-46.0); HGB 12.9 g/dL (11.2-15.7); Immature Grans % 0.2; Lymphocytes % 31.7; MCH 31.9 pg (27.0-33.0); MCHC 32.9 % (32.0-36.0); MCV 96.8 fL (80-95); MPV 9.7 fL (8.0-11.0); Monocytes % 8.6; Neutrophils % 49.3; Nucleated RBC 0 %; Platelet Count 228 10^3/uL (130-400); RBC 4.05 10^6/uL (3.93-5.22); RDW 11.6 % (11.7-14.6); RDW-SD 41.3 fL; WBC 6.05 10^3/uL (4.4-10.8)
[2020-09-10 10:16] LABS: ALT 38 U/L (14-59); AST 21 U/L (15-37); Albumin 4.2 g/dL (3.4-5.0); Alkaline Phosphatase 85 U/L (46-116); Anion Gap 9.7 mmol/L (3-11); BUN 16 mg/dL (7-18); Bilirubin, Total 0.4 mg/dL (0.2-1.0); CO2 27.3 mmol/L (21.0-32.0); CREATININE 0.6 mg/dL (0.55-1.02); Calcium 9.3 mg/dL (8.5-10.1); Chloride 104 mmol/L (98-107); Ferritin 85 ng/mL (8-252); Glucose 79 mg/dL (74-106); Potassium 4.2 mmol/L (3.5-5.1); Sodium 141 mmol/L (136-145); TSH 1.44 uIU/mL (0.36-3.74); Total Protein 7.6 g/dL (6.4-8.2)
[2020-09-10 10:27] LABS: Folate > 20.0 ng/mL (8.6-20.0); Vitamin B12 > 2000 pg/mL (193-986)
[2020-09-10 10:45] LABS: FREE T4 0.99 ng/dL (0.76-1.46)
[2020-09-10 16:46] LABS: Progesterone <0.2 ng/mL (See Table)
[2020-09-10 16:58] LABS: T3,Free 3.4 pg/mL (2.8-5.3)
[2020-09-11 16:49] LABS: Zinc, Serum 0.88 mcg/mL (0.66-1.10)
[2020-09-13 10:19] LABS: DHEA Sulfate 58 ug/dL (75-410)
[2020-09-14 12:41] LABS: Estradiol, Mass Spectrometry <10 pg/mL; Estrone 12 pg/mL
[2020-09-15 10:06] LABS: Testosterone, Free 0.11 ng/dL (0.06-0.98); Testosterone, Total 7.1 ng/dL (8-60)
== END 2020-09-10 02:53 | disposition home or self-care (01) ==
LOC: LBO 02:52
PROVIDERS: PCP Naturopath; Visit Provider Naturopath
DX: R23.8 Other skin changes (principal); N94.819 Vulvodynia, unspecified; D53.9 Nutritional anemia, unspecified
CPT/HCPCS: 36415; 80053; 82627; 84402; 84403; 82607; 82626; 82670; 82679; 82728; 82746; 84144; 84439; 84443; 84481; 84630; 85025

== ENCOUNTER 2022-09-07 17:01 | Outpatient (REF) | payer BC, SELFPAY ==
[2022-09-09 11:16] LABS: COVID-19 RT-PCR UVMMC Result Negative (Negative)
== END 2022-09-07 17:02 | disposition home or self-care (01) ==
LOC: LBN 17:01
PROVIDERS: PCP Naturopath; Visit Provider Physician Assistant Medical
DX: J02.9 Acute pharyngitis, unspecified (principal)
CPT/HCPCS: U0003; 87081

== ENCOUNTER 2023-01-09 03:21 | Outpatient (CLI) | payer BC, SELFPAY ==
[2023-01-09 17:10] LABS: Abs Immature Grans 0.02 10^3/uL (0.0-0.06); Absolute Basophil Count 0.07 10^3/uL (0.0-0.2); Absolute Eosinophil Count 0.37 10^3/uL (0.0-0.7); Absolute Lymphocyte Count 2.28 10^3/uL (1.2-3.4); Absolute Monocyte Count 0.64 10^3/uL (0.1-0.8); Absolute Neutrophil Count 3.89 10^3/uL (1.2-6.7); Eosinophils % 5.1; HCT 38.9 % (36.0-46.0); HGB 12.9 g/dL (11.2-15.7); Immature Grans % 0.3; Lymphocytes % 31.4; MCH 31.9 pg (27.0-33.0); MCHC 33.2 % (32.0-36.0); MCV 96 fL (80-95); MPV 10.1 fL (8.0-11.0); Monocytes % 8.8; Neutrophils % 53.4; Platelet Count 207 10^3/uL (130-400); RBC 4.05 10^6/uL (3.93-5.22); RDW 11.9 % (11.7-14.6); RDW-SD 42.3 fL; WBC 7.27 10^3/uL (4.4-10.8)
[2023-01-09 18:21] LABS: Calculated LDL 81 mg/dL (<100); Cholesterol 175 mg/dL (<200); HDL Cholesterol 87 mg/dL (40-60); Iron 103 ug/dL (50-170); Total Iron Binding Capacity 332 ug/dL (250-450); Transferrin Sat 31 % (15-50); Triglyceride 37 mg/dL (<150)
[2023-01-09 18:40] LABS: Vitamin D 25 Total 72.5 ng/mL (30-100)
[2023-01-09 18:50] LABS: ALT 38 U/L (14-59); AST 26 U/L (15-37); Albumin 4.2 g/dL (3.4-5.0); Alkaline Phosphatase 82 U/L (46-116); Anion Gap 7.7 mmol/L (3-11); BUN 18 mg/dL (7-18); Bilirubin, Total 0.3 mg/dL (0.2-1.0); CO2 29.3 mmol/L (21.0-32.0); CREATININE 0.7 mg/dL (0.55-1.02); Calcium 8.9 mg/dL (8.5-10.1); Chloride 106 mmol/L (98-107); Estimated GFR 110.67 (mL/min/1.73m2); Ferritin 73 ng/mL (8-252); Glucose 96 mg/dL (74-106); Potassium 3.7 mmol/L (3.5-5.1); Sodium 143 mmol/L (136-145); TSH 1.56 uIU/mL (0.36-3.74); Total Protein 7.7 g/dL (6.4-8.2)
[2023-01-09 18:51] LABS: Folate > 20.0 ng/mL (8.6-20.0); Vitamin B12 > 2000 pg/mL (193-986)
[2023-01-09 19:06] LABS: FREE T4 0.76 ng/dL (0.76-1.46)
[2023-01-10 17:46] LABS: Estradiol 30 pg/mL (See Note); Progesterone 1.4 ng/mL (See Table)
[2023-01-10 18:08] LABS: LH 20.3 mIU/mL (See Note); Thyroperoxidase Antibody <28 U/mL (<=60)
[2023-01-10 18:12] LABS: FSH 42.9 mIU/mL (See Note)
[2023-01-12 09:14] LABS: DHEA Sulfate 72 ug/dL (75-410)
[2023-01-13 10:52] LABS: Apolipoprotein A1, S 185 mg/dL (>=140); Apolipoprotein B, S 63 mg/dL (See Comment); Apolipoprotein B/A 1 ratio 0.3 (See Comment)
[2023-01-15 12:48] LABS: Testosterone, Free 0.23 ng/dL (<0.13-0.98); Testosterone, Total 11 ng/dL (8-60)
== END 2023-01-09 03:22 | disposition home or self-care (01) ==
LOC: LBO 03:22
PROVIDERS: PCP Naturopath; Visit Provider Naturopath
DX: N92.6 Irregular menstruation, unspecified (principal); E55.9 Vitamin D deficiency, unspecified; Z13.220 Encounter for screening for lipoid disorders; R53.83 Other fatigue
CPT/HCPCS: 36415; 80053; 80061; 82172; 82306; 82627; 84402; 84403; 82607; 82670; 82728; 82746; 83001; 83002; 83540; 83550; 84144; 84439; 84443; 85025; 86376

== ENCOUNTER 2023-09-25 16:13 | Outpatient (CLI) | payer BC, SELFPAY ==
[2023-09-25 15:49] LABS: Abs Immature Grans 0.02 10^3/uL (0.0-0.06); Absolute Basophil Count 0.07 10^3/uL (0.0-0.2); Absolute Eosinophil Count 0.59 10^3/uL (0.0-0.7); Absolute Lymphocyte Count 2.08 10^3/uL (1.2-3.4); Absolute Neutrophil Count 5.23 10^3/uL (1.2-6.7); Basophils % 0.8; Eosinophils % 6.8; HCT 36.7 % (36.0-46.0); HGB 12.1 g/dL (11.2-15.7); Immature Grans % 0.2; Lymphocytes % 23.9; MCH 32.1 pg (27.0-33.0); MCV 97 fL (80-95); MPV 9.7 fL (8.0-11.0); Monocytes % 8.1; Neutrophils % 60.2; Platelet Count 214 10^3/uL (130-400); RBC 3.77 10^6/uL (3.93-5.22); RDW 11.9 % (11.7-14.6); RDW-SD 43.1 fL; WBC 8.69 10^3/uL (4.4-10.8)
[2023-09-25 16:48] LABS: Iron 88 ug/dL (50-170); Total Iron Binding Capacity 306 ug/dL (250-450); Transferrin Sat 29 % (15-50)
[2023-09-25 17:17] LABS: ALT 29 U/L (14-59); AST 22 U/L (15-37); Albumin 3.9 g/dL (3.4-5.0); Alkaline Phosphatase 56 U/L (46-116); Anion Gap 7.3 mmol/L (3-11); BUN 14 mg/dL (7-18); Bilirubin, Total 0.3 mg/dL (0.2-1.0); CO2 28.7 mmol/L (21.0-32.0); CREATININE 0.8 mg/dL (0.55-1.02); Calcium 8.9 mg/dL (8.5-10.1); Chloride 107 mmol/L (98-107); Ferritin 66 ng/mL (8-252); Folate > 20.0 ng/mL (8.6-20.0); Glucose 88 mg/dL (74-106); Potassium 3.4 mmol/L (3.5-5.1); Sodium 143 mmol/L (136-145); TSH 1.64 uIU/Ml (0.36-3.74); Total Protein 7.3 g/dL (6.4-8.2); Vitamin B12 > 2000 pg/mL (193-986)
[2023-09-25 17:33] LABS: FREE T4 0.87 ng/dL (0.76-1.46)
[2023-09-26 17:20] LABS: T3,Free 3.5 pg/mL (2.8-5.3)
== END 2023-09-25 16:14 | disposition home or self-care (01) ==
LOC: LBO 16:16
PROVIDERS: PCP Naturopath; Visit Provider Naturopath
DX: R53.83 Other fatigue (principal)
CPT/HCPCS: 36415; 80053; 82607; 82728; 82746; 83540; 83550; 84439; 84443; 84481; 85025

== ENCOUNTER 2023-12-19 05:08 | Outpatient (CLI) | payer BC, SELFPAY ==
[2023-12-20 08:59] LABS: Abs Immature Grans 0.02 10^3/uL (0.0-0.06); Absolute Eosinophil Count 0.38 10^3/uL (0.0-0.7); Absolute Lymphocyte Count 2.47 10^3/uL (1.2-3.4); Absolute Monocyte Count 0.76 10^3/uL (0.1-0.8); Absolute Neutrophil Count 4.83 10^3/uL (1.2-6.7); Basophils % 1.2 %; Eosinophils % 4.4 %; HCT 41.7 % (36.0-46.0); HGB 13.8 g/dL (11.2-15.7); Immature Grans % 0.2 %; Lymphocytes % 28.9 %; MCH 32.1 pg (27.0-33.0); MCHC 33.1 % (32.0-36.0); MCV 97 fL (80-95); MPV 10.9 fL (8.0-11.0); Monocytes % 8.9 %; Neutrophils % 56.4 %; Platelet Count 252 10^3/uL (130-400); RDW 12.3 % (11.7-14.6); RDW-SD 43.8 fL; WBC 8.56 10^3/uL (4.4-10.8)
[2023-12-27 01:06] LABS: Histamine, Whole Blood 1884 nmol/L (180-1800)
== END 2023-12-19 05:09 | disposition home or self-care (01) ==
LOC: LBO 05:09
PROVIDERS: PCP Naturopath; Visit Provider Naturopath
DX: H10.13 Acute atopic conjunctivitis, bilateral (principal)
CPT/HCPCS: 36415; 83088; 85025

== ENCOUNTER 2024-04-21 03:26 | Outpatient (CLI) | payer BC, SELFPAY ==
[2024-04-21 16:15] LABS: HCT 38.4 % (36.0-46.0); HGB 13.1 g/dL (11.2-15.7); MCHC 34.1 % (32.0-36.0); MCV 97 fL (80-95); MPV 10.1 fL (8.0-11.0); Platelet Count 223 10^3/uL (130-400); RBC 3.97 10^6/uL (3.93-5.22); RDW 12.3 % (11.7-14.6); RDW-SD 43.7 fL; WBC 8.85 10^3/uL (4.4-10.8)
== END 2024-04-21 03:27 | disposition home or self-care (01) ==
LOC: LBO 03:26
PROVIDERS: PCP Naturopath; Visit Provider Obstetrics & Gynecology
DX: Z01.818 Encounter for other preprocedural examination (principal)
CPT/HCPCS: 36415; 85027; 86850; 86900; 86901

== ENCOUNTER 2024-04-22 01:33 | Outpatient (CLI) | payer BC, SELFPAY ==
--- NOTE | 2024-04-22 06:45 | DI.MAMMO_ITS ---
Exam(s) MAMMO SCREENING EXAM: MAMMO SCREENING CLINICAL HISTORY: screening,Z12.39 TECHNIQUE: Mammograms were interpreted according to the usual protocol including computer analysis w Phot[employer]ucket CAD system, tomosynthesis and C-view imaging. COMPARISON: None. Baseline examination. FINDINGS: The breasts are composed of heterogeneously dense fibroglandular densities, Breast Density category C . No suspicious masses or suspicious microcalcifications are seen. No skin thickening or abnormal axillary lymph nodes are seen. IMPRESSION: BI-RADS Category 1, Negative mammogram. Yearly screening mammography is recommended. Breast Density Category C, heterogeneously Dense. The mammogram demonstrates the patient's breast tissue is dense. Dense breast tissue is very common a nd is not abnormal but dense breast tissue can make it harder to find cancer on a mammogram. Also, de nse breast tissue may increase breast cancer risk. This information about the result of the mammogram report was provided to the patient to raise their awareness. Use this report when you speak with the patient about their risks for breast cancer, which includes their family history. At that time, you may recommend additional screening tests (Ultrasound or MRI) as they might be useful based on their r isk. A negative radiographic report should not delay biopsy if a dominant or clinically suspicious mass is present. Up to ten percent of cancers are not identified on mammography. A negative report may reinforce clinical impression. Adenosis and dense breasts may obscure an underlying neoplasm. False positive reports average 6 to 10%.
== END 2024-04-22 01:53 ==
LOC: DI 01:34
PROVIDERS: PCP Naturopath; Visit Provider Obstetrics & Gynecology
DX: Z12.31 Encounter for screening mammogram for malignant neoplasm of breast (principal)
CPT/HCPCS: 77063; 77067

== ENCOUNTER 2024-04-23 08:09 | Day surgery (SDC) | payer BC, SELFPAY ==
[2024-04-23] VITALS (17 sets, daily range): BP systolic 85–106; BP diastolic 41–72; PULSE 45–77; RESP 6–16; TEMP 36.5–36.8; O2SAT 98–100; BMI 19.8
--- NOTE | 2024-04-23 08:32 | W.ANESPRE ---
General Info Date of Service Date Performed: 04/23/24 Height: 5 ft 2 in Weight: 49.2 kg Body Mass Index (BMI): 19.8 Surgical Procedure: Operation Date: 04/23/24 09:25 Proposed Procedure Side Surgeon p Dilation & Curettage Dinorah Oliveira DO Meds Allergies and Home Medications Allergies Allergy/AdvReac Type Severity Reaction Status Date / Time grass pollen Allergy Intermediate Anaphylaxis Verified 04/23/24 08:17 house dust Allergy Mild Swelling/Ed Verified 04/23/24 08:17 lupe egg AdvReac Intermediate Other (See Verified 04/23/24 08:17 Comment) lactase (From Dairy Aid) AdvReac Other (See Verified 04/23/24 08:17 Comment) trees] Allergy Intermediate Swelling/Ed Uncoded 04/23/24 08:17 lupe fruit Allergy Other (See Uncoded 04/23/24 08:17 Comment) Home Medication ?Medication ?Instructions ?Recorded omega-3 fatty acids-fish oil 300 1 ea PO AC & HS 03/21/17 mg-1,000 mg capsule lactobacillus combination no.8 3 See Rx Instructions PO DAILY 12/19/19 billion cell capsule (Adult Probiotic) cholecalciferol (vitamin D3) 25 6,000 unit PO DAILY 05/25/20 mcg/drop (1,000 unit/drop) oral drops lidocaine 5 % topical ointment 1 applic topical DAILY vulvodynia 01/12/22 #30 grams clobetasol 0.05 % topical ointment 1 applic topical BID 2 weeks #60 04/02/24 grams prasterone (dhea) 10 mg tablet 40 mg PO DAILY 04/10/24 theanine 50 mg-5-HTP 12.5 mg-lemon 1 tab PO DIRECTED 04/10/24 balm extract 0.5 mg chewable tablet Current Visit Medications: Current Medications Generic Name Dose Route Start Last Admin Trade Name Freq PRN Reason Stop Dose Admin Ringer's Solution 1,000 mls @ 125 mls/hr 04/23/24 06:00 IV 04/23/24 23:59 INFUSION GINA IV Miscellaneous Supplies 1 each 04/23/24 06:00 Iv Access IV 04/23/24 23:59 DIRECTED GINA Sodium Chloride 0 ml 04/23/24 06:00 Normal Saline Flush 10 Ml Syr IV 04/23/24 23:59 PRN PRN Sodium Chloride 0 ml 04/23/24 06:00 Normal Saline 10 Ml Vial IJ 04/23/24 23:59 DIRECTED PRN Sterile Water 0 ml 04/23/24 06:00 Water,Injection,Sterile 10 Ml Vial IJ 04/23/24 23:59 DIRECTED PRN PFSH Active Problems Active Problems: Problem Status Onset Code Cervical polyp Acute N84.1 Vulvar irritation Acute N90.89 Pelvic floor dysfunction Chronic M62.89 Dyspareunia Chronic 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 Has used progesterone for luteal support. Spontaneous in first trimester (03/21/17) 02/2017. 6w dating u/s: low FHR. Subchorionic bleed. 9w SAB w/o D&C. 07/18/17 5w EGA. No D&C. Rh negative, maternal received Rhogam with 1st and 02/2017 SAB. Miscarriage 03/16/17. After diagnosed with subchorionic bleed and low FH are on dating ultrasound. 9-week SAB without D&C. RhoGam given 07/18/2017. 5W EGA. No D&C. No RhoGam given. Surgical History Surgical History History of mandibular surgery wided jaw and brought it forward per pt. (2005). Tobacco Smoking/Tobacco Use Status: Former Tobacco Use Second hand exposure: No Alcohol Alcohol Intake: former Substance Use Substance use: Never Substance use type: does not use Prental History History 4 Para 2 Hx # Term Pregnancies 2 Multiple births 0 Hx # Pregnancies 0 Ectopic pregnancies 0 AB induced 0 Hx Number of Living Children 2 AB spontaneous 2 Past Pregnancies Del. Date GA/Weeks # Preg Succ Route Wgt Sex Labor Lgth Anesthesia Location Prov Complic 06/28/13 39 No vaginal 2834.952 g Male SR[facility] then labor, epidural @ 9 cm CN[facility] in [place] 03/20/17 9 No vaginal 07/18/17 5 No 04/12/20 39 No vaginal 3169.477 g Male 6hrs 54 min Jeannie Healy CNM Delivery Date: 06/28/13 Last Updated by: Natty Alvarado normal Delivery Date: 03/20/17 Last Updated by: Georgiana Ferrer M.D. Initial dating ultrasound at 6 weeks showed IUP with slow heart rate and subchorionic bleed. SAB at 9 weeks not requiring D&C. Patient received RhoGam Delivery Date: 07/18/17 Last Updated by: Georgiana Ferrer M.D. SAB at 5 weeks after+ UPT confirmed on 07/11/2017. No RhoGam given Vital Signs and Lab Results Vital Signs Most Recent Vital Signs in EMR: Most Recent Vital Signs Temp Pulse Resp BP Pulse Ox 36.6 C 77 16 93/61 L 98 04/23/24 08:25 04/23/24 08:25 04/23/24 08:25 04/23/24 08:25 04/23/24 08:25 Lab Results Blood Type / Crossmatch: Antibody Screen NEGATIVE 04/21/24 Complete Blood Count: White Blood Count 8.85 10^3/uL (4.4-10.8) 04/21/24 15:20 Red Blood Count 3.97 10^6/uL (3.93-5.22) 04/21/24 15:20 Hemoglobin 13.1 g/dL (11.2-15.7) 04/21/24 15:20 Hematocrit 38.4 % (36.0-46.0) 04/21/24 15:20 Platelet Count 223 10^3/uL (130-400) 04/21/24 15:20 Complete Metabolic Panel: No Data to Display Liver Function Panel: No Data to Display Coagulation Panel: No Data to Display Cardiac Panel: No Data to Display Arterial Blood Gas: No Data to Display Venous Blood Gas: No Data to Display Pancreas Panel: No Data to Display Thyroid Panel: No Data to Display Infectious Disease: No Data to Display Blood Cultures: No Data to Display Toxicology Panel: No Data to Display Panel: No Data to Display Anesthesia Assessment and Plan Anesthesia History Personal History: No History of Anesthesia Complications Family History: No Family History of Anesthesia Complications Exercise Tolerance Exercise Tolerance: Metabolic Equivalents>4 Pertinent Negatives Pertinent Negatives: No Symptoms of GERD Cardiac & Pulmonary Exam Cardiac Exam: Normal S1/S2 Heart Sounds Pulmonary Exam: Clear Bilateral Breath Sounds Implantable Cardiac Device Does patient have a Pacemaker or an ICD?: No Airway Exam Known Difficult Airway: No Mallampati Class: 1 Mouth Opening: Normal (> 3cm) Thyromental Distance: Greater than 3 cm Neck Range of Motion: Full ROM Neck Circumference: Normal Teeth Condition: Normal Dentition ASA Classification ASA Score: ASA 2 Emergency Case?: No NPO Status NPO Status: NPO Clears >2 hours, Solids >8 hours Status Status: Negative HCG Anesthesia Plan Resuscitation Status: Full Code Anesthesia Technique: General Anesthesia Airway Planned: LMA Monitors Used: Standard Monitors
[2024-04-23] MEDS: Lactated Ringers 1,000 ML 125 ML IV (08:56)
--- NOTE | 2024-04-23 10:01 | CER_PTH ---
PATIENT: Farnaz Reynoso LOC: [facility] U#:[id number] AGE/SX: 44/F ROOM: RE04/23/[address]: Dinorah Oliveira DO : 1980 BED: DIS: 04/23/2024 SPEC #: [id number] RECD: 04/23/24 12:36 STATUS: SHIRLENE REQ #: [id number] MALIK: 04/23/24 10:[address]: Dinorah Oliveira DEPT: Surgical Specimen RECD BY: Betsy Yeung ENTERED: 04/23/24 12:38 SP TYPE: CER OTHR DR: Ivania Sow Tissues: 1 - CERVICAL BIOPSY 2 - ENDOCERVICAL BX/CURRETTE 3 - ENDOMETRIUM BX/CURRETTE Procedures: GROSS AND MICRO LEVEL 4 Comments: [id number]
[2024-04-23] MEDS: Silver Nitrate Stick 1 EACH (10:06)
--- NOTE | 2024-04-23 10:15 | ROE_ITS ---
Date of service: 04/23/24 Time of Service: 10:15 Operative Note Operative Note DATE OF PROCEDURE: 04/23/24 PRE-OP DIAGNOSIS: Cervical polyp POST-OP DIAGNOSIS: same PROCEDURE: Hysteroscopy, dilation curettage, removal of endocervical polyp SURGEON: Dinorah Oliveira ANESTHESIA TYPE: General LMA/ETT Refer to Anesthesia Record ESTIMATED BLOOD LOSS: 10 PATHOLOGY: other (1. Endocervical polyp 2. Endocervical curettage 3. Endometrial curettage) COMPLICATIONS: None Patient was transported to: same day Patient's condition: stable Indications: Cervical polyp Findings: 2 cm cervical polyp, smooth, regular endometrium. Procedure Description: After full informed consent was obtained, patient was taken the operating suite with an IV running. She is placed in the supine position and anesthesia administered. She was then placed in the modified dorsolithotomy position in yellowfin stirrups with pneumatic compression stockings and prepped and draped in the usual sterile fashion. No IV antibiotics were necessary for surgical site infection prophylaxis. Speculum was inserted to the vaginal vault. A single-tooth tenaculum was used to grasp the anterior lip of the cervix. Cervical polyp was noted and grasped with a ring forcep and removed. Hystero scope was then performed with instillation of normal saline for evaluation of the endocervical and endometrial cavities. They were smooth, and regular. No other intrauterine pathology was noted. At this point, a fractional dilation curettage was performed which included an endocervical curetting followed by endometrial curetting. Tenaculum was then removed. Puncture sites were cauterized with silver nitrate. The speculum was removed and the patient was returned to the dorsal supine position and awoke from anesthesia without difficulty. Complications: None apparent Fluids: Crystalloid per anesthesia +75 cc of normal saline instillation. Pathology: 1. Endocervical polyp 2. Endocervical curettage 3. Endometrial curettage EBL: 10 mL.
--- NOTE | 2024-04-23 11:51 | W.ANESPOSTOP ---
Postoperative Evaluation Date, Time and Location Date Performed: 04/23/24 Time Performed: 11:40 Patient Location: Day Surgery Unit Vital Signs Most Recent Imported Vital Signs: Most Recent Vital Signs Temp Pulse Resp BP Pulse Ox 36.7 C 51 L 16 106/72 99 04/23/24 11:15 04/23/24 11:15 04/23/24 11:15 04/23/24 11:15 04/23/24 11:15 Pain Score Most Recent Pain Score: Most Recent Pain Score Pain Level 3 04/23/24 10:40 Assessment Mental Status: Awake (Alert & Oriented to Patient Baseline) Airway and Respiratory Function: Patent airway with normal (patient baseline) respiratory exam Cardiovascular Function: Hemodynamically Stable Hydration Status: Adequately Hydrated Nausea & Vomiting: No Nausea or Vomiting Pain: Pain is tolerable per patient Peripheral Nerve Block: Patient did not receive a nerve block
== END 2024-04-23 11:50 | disposition home or self-care (01) ==
PROVIDERS: PCP Naturopath; Visit Provider Obstetrics & Gynecology
PROC: (CPT 58558; principal; 2024-04-23 09:15)
DX: N84.1 Polyp of cervix uteri (principal); N94.10 Unspecified dyspareunia; L28.0 Lichen simplex chronicus; N94.810 Vulvar vestibulitis
CPT/HCPCS: 58558; 81025; 88305; J1100; J1885; J2405; J2704

== ENCOUNTER 2024-05-05 03:35 | Outpatient (CLI) | payer BC, SELFPAY ==
[2024-05-06 18:12] LABS: Progesterone <0.2 ng/mL (See Table)
[2024-05-07 08:41] LABS: DHEA Sulfate 74 ug/dL (75-410)
[2024-05-12 09:39] LABS: Estradiol, Mass Spectrometry 71 pg/mL; Estrone 48 pg/mL
== END 2024-05-05 03:36 | disposition home or self-care (01) ==
PROVIDERS: PCP Naturopath; Visit Provider Naturopath
DX: N84.1 Polyp of cervix uteri (principal); R53.83 Other fatigue
CPT/HCPCS: 36415; 82627; 82670; 82679; 84144

== ENCOUNTER 2025-01-02 01:38 | Outpatient (CLI) | payer OTHER, SELFPAY ==
[2025-01-02 09:14] LABS: Abs Immature Grans 0.02 10^3/uL (0.0-0.06); Absolute Basophil Count 0.06 10^3/uL (0.0-0.2); Absolute Eosinophil Count 0.51 10^3/uL (0.0-0.7); Absolute Lymphocyte Count 1.72 10^3/uL (1.2-3.4); Absolute Monocyte Count 0.56 10^3/uL (0.1-0.8); Absolute Neutrophil Count 4.02 10^3/uL (1.2-6.7); Basophils % 0.9 %; Eosinophils % 7.4 %; HCT 37.2 % (36.0-46.0); HGB 12.2 g/dL (11.2-15.7); Immature Grans % 0.3 %; MCH 32.3 pg (27.0-33.0); MCHC 32.8 % (32.0-36.0); MCV 98 fL (80-95); MPV 9.9 fL (8.0-11.0); Monocytes % 8.1 %; Neutrophils % 58.3 %; Platelet Count 187 10^3/uL (130-400); RBC 3.78 10^6/uL (3.93-5.22); RDW-SD 43.8 fL; WBC 6.89 10^3/uL (4.4-10.8)
[2025-01-02 10:03] LABS: ALT 25 U/L (14-59); AST 18 U/L (15-37); Albumin 3.7 g/dL (3.4-5.0); Alkaline Phosphatase 56 U/L (46-116); Anion Gap 6.9 mmol/L (3-11); BUN 11 mg/dL (7-18); Bilirubin, Total 0.5 mg/dL (0.2-1.0); CO2 29.1 mmol/L (21.0-32.0); CREATININE 0.7 mg/dL (0.55-1.02); Calcium 8.7 mg/dL (8.5-10.1); Calculated LDL 53 mg/dL (<100); Chloride 104 mmol/L (98-107); Cholesterol 129 mg/dL (<200); Glucose 83 mg/dL (74-106); HDL Cholesterol 68 mg/dL (>or=50); Iron 131 ug/dL (50-170); Potassium 3.8 mmol/L (3.5-5.1); Sodium 140 mmol/L (136-145); Total Iron Binding Capacity 332 ug/dL (250-450); Total Protein 6.9 g/dL (6.4-8.2); Transferrin Sat 39 % (15-50); Triglyceride 40 mg/dL (<150); Vitamin D 25 Total 42 ng/mL (30-100)
[2025-01-02 14:16] LABS: Ferritin 46 ng/mL (8-252)
[2025-01-02 20:26] LABS: FSH 4.7 mIU/mL (See Note); LH 8.3 mIU/mL (See Note); Sex Hormone Binding Globulin 40.9 nmol/L (See Note)
[2025-01-05 09:49] LABS: DHEA Sulfate 103 ug/dL (75-410)
[2025-01-06 12:20] LABS: Estradiol, Mass Spectrometry 296 pg/mL; Estrone 185 pg/mL
[2025-01-17 15:12] LABS: Testosterone, Total 21 ng/dL (8-60)
== END 2025-01-02 01:39 | disposition home or self-care (01) ==
LOC: LBO 01:39
PROVIDERS: PCP Naturopath; Visit Provider Naturopath
DX: I95.89 Other hypotension (principal); E55.9 Vitamin D deficiency, unspecified; Z13.220 Encounter for screening for lipoid disorders; R53.82 Chronic fatigue, unspecified; N92.0 Excessive and frequent menstruation with regular cycle
CPT/HCPCS: 36415; 80053; 80061; 82306; 82533; 82627; 83519; 84402; 84403; 82670; 82679; 82728; 83001; 83002; 83540; 83550; 84270; 85025

== ENCOUNTER 2025-05-07 05:19 | Outpatient (CLI) | payer BC, SELFPAY ==
[2025-05-07 08:46] LABS: HCT 37.6 % (36.0-46.0); HGB 12.4 g/dL (11.2-15.7); MCH 32.0 pg (27.0-33.0); MCHC 33.0 % (32.0-36.0); MCV 97 fL (80-95); MPV 9.7 fL (8.0-11.0); Platelet Count 201 10^3/uL (130-400); RBC 3.88 10^6/uL (3.93-5.22); RDW 12.2 % (11.7-14.6); RDW-SD 43.3 fL; WBC 4.51 10^3/uL (4.4-10.8)
[2025-05-07 09:58] LABS: Ferritin 63 ng/mL (8-252)
[2025-05-07 10:04] LABS: Folate > 20.0 ng/mL (8.6-20.0); Vitamin B12 > 2000 pg/mL (193-986)
== END 2025-05-07 05:20 | disposition home or self-care (01) ==
PROVIDERS: PCP Naturopath; Visit Provider Naturopath
DX: D75.89 Other specified diseases of blood and blood-forming organs (principal)
CPT/HCPCS: 36415; 80186; 85027; 82607; 82728; 82746; 85045

== ENCOUNTER 2025-05-08 05:10 | Outpatient (CLI) | payer BC, SELFPAY ==
--- NOTE | 2025-05-08 07:15 | DI.MAMMO_ITS ---
Exam(s) MAMMO SCREENING EXAM: MAMMO SCREENING CLINICAL HISTORY: screening,z12.39 TECHNIQUE: Mammograms were interpreted according to the usual protocol including computer analysis with CAD system, tomosynthesis and C-view imaging. COMPARISON: 2023 FINDINGS: The breasts are composed of heterogeneously dense fibroglandular densities, Breast Density category C. No suspicious microcalcifications are seen in either breast. In the right breast, there is a small asymmetry density seen superiorly in the anterior tissue which may represent overlying fibroglandular tissue. In addition there are questionable areas of nodularity seen in the posterior lateral right breast. Spot compression views and ultrasound are question for further evaluation No skin thickening or abnormal axillary lymph nodes are seen. There has been no significant change in the appearance of the left breast from prior exams. IMPRESSION: Right breast: BI-RADS Category 0 - Incomplete: Need additional imaging evaluation Left breast: Yearly screening mammography is recommended. Breast Density: Category C - The breasts are heterogeneously dense, which may obscure small masses. Breast density Category C or D implies that the patient has dense breast tissue. Dense breast tissue can make it harder to find cancer on a mammogram. Dense breast tissue is also associated with an increased risk of breast cancer. This information about the result of the mammogram report was provided to the patient to raise their awareness. Use this report when you speak with the patient about their risks for breast cancer, which includes their family history. At that time, you may recommend additional screening tests (Ultrasound or MRI) as these tests may add significant information. A negative radiographic report should not delay biopsy if a dominant or clinically suspicious mass is present. Up to ten percent of cancers are not identified on mammography. A negative report may reinforce clinical impression. Adenosis and dense breasts may obscure an underlying neoplasm. False positive reports average 6 to 10%.
== END 2025-05-08 05:30 ==
LOC: DI 05:10
PROVIDERS: PCP Naturopath; Visit Provider Obstetrics & Gynecology
DX: Z12.31 Encounter for screening mammogram for malignant neoplasm of breast (principal); R92.323 Mammographic fibroglandular density, bilateral breasts; R92.333 Mammographic heterogeneous density, bilateral breasts
CPT/HCPCS: 77063; 77067

== ENCOUNTER 2025-05-14 03:58 | Outpatient (CLI) | payer BC, SELFPAY ==
--- NOTE | 2025-05-14 | DI.US_ITS ---
Exam(s) MG MAMMO SCREEN CALL BACK UNI US BREAST RT COMPLETE EXAM: MG MAMMO SCREEN CALL BACK UNI and U/S breast RT complete CLINICAL HISTORY: F/U ABNL MAMMO, SMALL ASYMMETRY DENSITY RT BREAST, NODULARITY. TECHNIQUE: Craniocaudal and mediolateral oblique Full Field Digital Mammography views of the right breast with Computer Aided Diagnosis followed by Tomosynthesis and complete right breast ultrasound. All 4 quadrants of the right breast, the right axilla and right retroareolar region were evaluated so nographically. COMPARISON: Comparison is made with prior examinations. FINDINGS: Mammography/Tomosynthesis: Masses/Architectural Distortion: The areas of concern in the right breast do not persist on the additional views. No areas of architectural distortion or suspicious masses are identified. Microcalcifictions: No suspicious pleomorphic-type are seen. Skin Thickening/Nipple Retraction: None. Complete right breast US: Echotexture: Normal appearance of the glandular tissue. Shadowing: No suspicious foci. Cyst: There is a well-circumscribed anechoic lesion at the 3 o'clock position 2 cm from the nipple measuring 0.5 x 0.4 x 0.5 cm consistent with a cyst. There is a 0.4 x 0.3 x 0.4 cm anechoic well-circumscribed nodule in the 12 o'clock position 1 cm from the nipple most consistent with a cyst. Solid lesions: None seen. Ductal dilation: None. IMPRESSION: 1. No evidence of malignancy is noted. 2. Unless there is more urgent need, follow-up screening mammography is recommended, as per [employer] guidelines. 3. The findings were discussed with the patient on the date of the examination. BI-RADS Category 2 - Benign Findings Breast Density - Category C - The breast are heterogeneously dense, which may obscure small masses. Breast density Category C or D implies that the patient has dense breast tissue. Dense breast tissue can make it harder to find cancer on a mammogram. Dense breast tissue is also associated with an increased risk of breast cancer. This information about the result of the mammogram report was provided to the patient to raise their awareness. Use this report when you speak with the patient about their risks for breast cancer, which includes their family history. At that time, you may recommend additional screening tests (Ultrasound or MRI) as these tests may add significant information. A negative radiographic report should not delay biopsy if a dominant or clinically suspicious mass is present. Up to ten percent of cancers are not identified on mammography. A negative report may reinforce clinical impression. Adenosis and dense breasts may obscure an underlying neoplasm. False positive reports average 6 to 10%. Patient will receive a letter notifying them of these results.
== END 2025-05-14 04:18 ==
LOC: DI 03:59
PROVIDERS: PCP Naturopath; Visit Provider Obstetrics & Gynecology
DX: Z12.31 Encounter for screening mammogram for malignant neoplasm of breast (principal)
CPT/HCPCS: 76642; 77063; 77067

== ENCOUNTER 2025-05-20 01:59 | Outpatient (CLI) | payer BC, SELFPAY ==
[2025-05-20 08:49] LABS: HCT 37.9 % (36.0-46.0); HGB 12.4 g/dL (11.2-15.7); MCH 31.5 pg (27.0-33.0); MCHC 32.7 % (32.0-36.0); MCV 96 fL (80-95); MPV 9.9 fL (8.0-11.0); Platelet Count 193 10^3/uL (130-400); RBC 3.94 10^6/uL (3.93-5.22); RDW 11.7 % (11.7-14.6); RDW-SD 41.2 fL; WBC 4.27 10^3/uL (4.4-10.8)
[2025-05-20 10:11] LABS: Vitamin B12 > 2000 pg/mL (193-986)
[2025-05-20 10:12] LABS: Folate > 20.0 ng/mL (8.6-20.0)
[2025-05-22 12:35] LABS: Copper, Serum 117 mcg/dL (77-206)
== END 2025-05-20 02:00 | disposition home or self-care (01) ==
LOC: LBO 01:59
PROVIDERS: PCP Naturopath; Visit Provider Naturopath
DX: D75.89 Other specified diseases of blood and blood-forming organs (principal)
CPT/HCPCS: 36415; 82525; 85027; 82607; 82746

== ENCOUNTER 2025-05-22 14:24 | Outpatient (REF) | payer BC, SELFPAY ==
[2025-05-22 15:51] LABS: TSH (W/Ref FT4) 0.96 uIU/mL (0.36-3.74)
== END 2025-05-22 14:25 | disposition home or self-care (01) ==
LOC: NCHCN 14:24
DX: R53.83 Other fatigue (principal)
CPT/HCPCS: 84443

== ENCOUNTER 2025-07-14 15:46 | Outpatient (REF) | payer BC, SELFPAY | END 2025-07-14 15:47 | disposition home or self-care (01) | LOC: LBN 15:46 | PROVIDERS: Visit Provider Nurse Practitioner Family | DX: N90.89 Other specified noninflammatory disorders of vulva and perineum (principal); R30.0 Dysuria | CPT/HCPCS: 87086; 87480; 87510; 87660 ==

== ENCOUNTER 2025-07-17 16:17 | Outpatient (REF) | payer BC, SELFPAY ==
[2025-07-17 22:01] LABS: RBC 0-2 HPF (0-2); WBC Negative HPF (0-5)
== END 2025-07-17 16:18 | disposition home or self-care (01) ==
LOC: LBN 16:17
PROVIDERS: Visit Provider Physician Assistant Medical
DX: R30.0 Dysuria (principal)
CPT/HCPCS: 81015; 87086